=== PATIENT | female | born 1965 | race Caucasian/White ===

== ENCOUNTER 2019-10-18 14:20 | Inpatient (IN) | payer SELFPAY ==
[2019-10-18 14:23] VITALS: BP 189/127; PULSE 125; RESP 18; TEMP 36.6; O2SAT 98; BMI 26.4
--- NOTE | 2019-10-18 14:29 | W.ED.PSYCH ---
HPI - Psych General: Chief Complaint: Psychiatric Symptoms Stated Complaint: si Time Seen by Provider: 10/18/19 14:29 History of Present Illness: HPI Narrative: Delia is a nice 54-year-old female who comes in complaining of suicidal ideation. She states that she had a plan to overdose on pills. She states she feels this way around anniversaries and it is her anniversary with her . Her killed himself in the past by shooting himself in the bed while she was with him. She states it is traumatized her and she is had this problem ever since. She is requesting admission for stabilization at the psych unit. Review of Systems General: Reports: other (negative unless marked) Const: Denies: fever, chills, body aches, fatigue, malaise or diaphoresis Eyes: Denies: change in vision or blurry vision ENMT: Denies: throat pain, painful swallowing, hoarseness, ear pain, ear discharge, Change in hearing or nasal discharge Card: Denies: chest pain, palpitations, irregular heart rhythm, syncope, pre-syncope, shortness of breath on exertion or shortness of breath when lying down Resp: Denies: shortness of breath, productive cough, non-productive cough, wheezing, coughing up blood or chest congestion GI: Denies: abdominal pain, nausea, vomiting, vomiting blood, coffee grounds in vomit, diarrhea, constipation, cramping, blood in stool or black tarry stool : Denies: flank pain, painful urination, urinary frequency, urinary urgency, decreased urine ouput, urinary incontinence or blood in urine Musc: Denies: neck pain, back pain, extremity pain, extremity swelling, joint pain, joint swelling, joint warmth or joint stiffness Skin/Breast: Denies: rash, skin tenderness or yellow skin Neuro: Denies: headache, numbness in extremities, weakness in extremities, changes in sensation, lack of coordination, difficulty walking, dizziness, vertigo or confusion Endo: Denies: excessive thirst, tired all the time, cold intolerance, excessive sweating, flushing or hot flashes Jatinder/Lymph: Denies: easy bruising, easy bleeding, petechiae or enlarged lymph nodes All/Imm: Denies: hives, throat swelling, tongue swelling, facial swelling or acute wheezing PFSH ED PFSH: Medical History (Updated 10/18/19 @ 16:42 by Laurel Brewer) Generalized anxiety disorder Hypertension Major depressive disorder, recurrent severe without psychotic features Nicotine dependence, unspecified, uncomplicated Post-traumatic stress disorder, chronic Surgical History History of oral surgery Hx of tonsillectomy Family History (Updated 10/18/19 @ 16:40 by Geovani Garcia MD) Other CAD (coronary artery disease) Social History (Updated 10/18/19 @ 16:40 by Geovani Garcia MD) Smoking and tobacco status: current every day smoker cigarettes Packs smoked per day: 1.5 Years cigarettes smoked: 15 Quit status (tobacco): has tried quititng Number of times tried to quit tobacco: 4 Second hand smoke exposure: No Smoking risk assessment/counseling performed?: No Alcohol intake: current Alcohol intake frequency: 3 or more drinks per day Alcohol type: hard liquor Alcohol use comment: Vodka, greater than 1 pint a day Substance/Drug Use: never Physical Exam Const: COMMON NORMALS: no apparent distress, oriented x3, no limitations, healthy appearing and well nourished EXAM LIMITATIONS: no altered mental status GENERAL APPEARANCE: cooperative, well kempt and well developed ORIENTATION/CONSCIOUSNESS: Yes awake HENMT: COMMON NORMALS: normocephalic, head/scalp atraumatic, hearing grossly normal bilaterally, external ears normal, EAC's normal, external nose normal and moist oral mucous membranes HEAD & SCALP: normal to inspection, normocephalic and atraumatic FACE & SINUS: normal facial exam and face symmetric NOSE: external nose normal and nares normal EXTERNAL EAR: Yes external ears normal EXTERNAL AUDITORY CANAL: EAC's normal MOUTH: oral and palatal mucosa normal and tongue normal Eye: COMMON NORMALS: PERRL, EOMs intact bilaterally, conjunctivae normal and no scleral icterus GENERAL EYE: normal appearance of both eyes and normal light reflex CONJUNCTIVA: Yes conjunctivae normal SCLERA: sclerae normal CORNEA: Yes corneas normal PUPIL: Yes PERRL DIRECT OPHTHALMOSCOPY: Yes normal light reflex Neck/C-Spine: COMMON NORMALS: full ROM, no lymphadenopathy, supple, no meningeal signs and no JVD GENERAL: Yes normal visual inspection and Yes trachea midline CERVICAL SPINE: Yes cervical ROM normal Chest: COMMONS NORMALS: inspection of chest normal and palpation of chest normal Resp: COMMON NORMALS: normal respiratory effort, no retractions, no use of accessory muscles and clear to auscultation bilaterally EFFORT & INSPECTION: Yes able to speak in complete sentences AUSCULTATION: clear to auscultation bilaterally Cardio: COMMON NORMALS: no JVD, regular rate, regular rhythm, S1 normal heart sound, S2 normal heart sound, no gallops, no clicks, no murmurs and no rub JUGULAR VENOUS DISTENTION: no JVD RATE: regular rate RHYTHM: regular rhythm HEART SOUNDS: S1 normal and S2 normal GI: COMMON NORMALS: soft to palpation, non-tender, no hepatosplenomegaly and no masses INSPECTION: Yes normal to inspection PALPATION: Yes soft and Yes no hepatosplenomegaly : COMMON NORMALS: Yes no CVA tenderness BLADDER/KIDNEY EXAM: Yes no CVA tenderness Back/Pelvis: COMMON NORMALS: no CVA tenderness, thoracic and lumbar spine normal to inspection, no thoracic nor lumbar tenderness and thoraco-lumbar ROM normal Extremity: COMMON NORMALS: normal to inspection, full ROM, normal capillary refill, no joint enlargement, no clubbing, cyanosis or edema and no calf tenderness Neuro: COMMON NORMALS: oriented x3, CN's II-XII intact bilaterally, moves all extremities, no focal motor deficits and no sensory deficits noted MENINGEAL SIGNS: Yes no meningeal signs Psych: COMMON NORMALS: mental status grossly normal, cooperative and speech normal APPEARANCE: Yes well kempt ACTIVITY/MOTOR BEHAVIOR: Yes avoids eye contact SPEECH: Yes normal speech MOOD & AFFECT: Yes anxious and Yes irritable Skin: COMMON NORMALS: no rashes or lesions noted, skin turgor normal, no jaundice, no petechiae and no mottling GENERAL SKIN EXAM: no rashes or lesions noted and turgor normal MDM - Psych MDM Narrative: Medical decision making narrative: The case was reviewed with Dr. Diop, he agrees to the mid to the MPU. He would like Dr. Garcia consulted for the hyponatremia. Dr. Fernández has been notified and is going to see the patient in the ER. Lab Data: Labs: Lab Results 10/18/19 10/18/19 10/18/19 Range/Units 15:01 15:01 15:01 WBC (4.0-10.0) 10^3/ uL RBC (4.1-5.3) 10^6/u L Hgb (11.5-15.3) g/dL Hct (37.0-47.0) % MCV (81-99) fL MCH (28.0-34.0) pg MCHC (30.0-36.0) g/dL RDW (12.1-15.1) % Plt Count (130-400) 10^3/c mm MPV (7.4-10.4) fL Neut % (Auto) % Lymph % (Auto) % Kimble % (Auto) % Eos % (Auto) % Baso % (Auto) % Neut # (Auto) (1.8-7.7) 10^3/u L Lymph # (Auto) (0.8-4.8) 10^3/u L Kimble # (Auto) (0.2-0.9) 10^3/u L Eos # (Auto) (0.0-0.8) 10^3/u L Baso # (Auto) (0.0-0.1) 10^3/u L Nucleated RBC % (a uto) % Nucleated RBCs # /100WBC PT (10.5-13.3) SECO NDS INR (0.8-1.2) Sodium (136-145) mmol/L Potassium (3.5-5.1) mmol/L Chloride (98-107) mmol/L Carbon Dioxide (22-29) mmol/L Anion Gap (5-19) BUN (6-20) mg/dL Creatinine (0.5-0.9) mg/dL GFR Calculation (90-130) mL/min Glucose (65-115) mg/dL Calculated Osmolal ity (285-295) mOsm/k g Calcium (8.5-10.5) mg/dL Total Bilirubin (0.15-1.2) mg/dL AST (0-32) U/L ALT (0-33) U/L Alkaline Phosphata se (35-105) IU/L Total Protein (6.6-8.7) g/dL Albumin (3.5-5.2) g/dL Globulin (1.3-4.6) g/dL TSH (0.27-4.20) uIU/ mL HCG, Qual Negative (Negative) Urine Color Yellow (Yellow) Urine Appearance Clear (CLEAR) Urine pH 5 (5-7) Ur Specific Gravit y 1.015 (1.005-1.030) Urine Protein 1+ H (Negative) Urine Glucose (UA) 1+ (Normal) Urine Ketones 2+ H (Negative) Urine Blood 2+ H (Negative) Urine Nitrate Negative (Negative) Urine Bilirubin Neg (NEGATIVE) Urine Urobilinogen Norm (Negative) mg/dL Ur Leukocyte Maria Elena ase Negative (Negative) Urine RBC 0-4 H (0-2) /hpf Urine WBC 5-10 H (0-5) /hpf Ur Squamous Epith Cells Rare (0-5) Urine Bacteria 1+ H (NONE) Coarse Granular Ca sts 5-10 H /lpf Urine Mucus Trace Salicylates (3-10) mg/dL Urine Opiates Scre en Negative (Negative) ng/mL Acetaminophen (10-30) ug/mL Ur Barbiturates Sc reen Negative (Negative) ng/mL Phenytoin (10-20) ug/mL Valproic Acid (50-100) mcg/mL Carbamazepine (4.0-12.0) ug/mL Ur Phencyclidine S crn Negative (Negative) ng/mL Ur Amphetamines Sc reen Negative (Negative) ng/mL U Benzodiazepines Scrn Negative (Negative) ng/mL Hartwell (0.6-1.2) mmol/L Urine Cocaine Scre en Negative (Negative) ng/mL U Marijuana (THC) Screen Negative (Negative) ng/mL Ethyl Alcohol (0-10) mg/dL 10/18/19 10/18/19 10/18/19 Range/Units 15:21 15:21 15:21 WBC 7.8 (4.0-10.0) 10^3/ uL RBC 4.69 (4.1-5.3) 10^6/u L Hgb 13.4 (11.5-15.3) g/dL Hct 38.9 (37.0-47.0) % MCV 82.9 (81-99) fL MCH 28.6 (28.0-34.0) pg MCHC 34.4 (30.0-36.0) g/dL RDW 14.0 (12.1-15.1) % Plt Count 352 (130-400) 10^3/c mm MPV 8.5 (7.4-10.4) fL Neut % (Auto) 81.5 % Lymph % (Auto) 12.4 % Kimble % (Auto) 5.4 % Eos % (Auto) 0.0 % Baso % (Auto) 0.4 % Neut # (Auto) 6.4 (1.8-7.7) 10^3/u L Lymph # (Auto) 1.0 (0.8-4.8) 10^3/u L Kimble # (Auto) 0.4 (0.2-0.9) 10^3/u L Eos # (Auto) 0.0 (0.0-0.8) 10^3/u L Baso # (Auto) 0.0 (0.0-0.1) 10^3/u L Nucleated RBC % (a uto) 0 % Nucleated RBCs # 0.0 /100WBC PT 13.00 (10.5-13.3) SECO NDS INR 0.95 (0.8-1.2) Sodium 125 L (136-145) mmol/L Potassium 4.1 (3.5-5.1) mmol/L Chloride 83 L (98-107) mmol/L Carbon Dioxide 25 (22-29) mmol/L Anion Gap 21.1 H (5-19) BUN 6 (6-20) mg/dL Creatinine 0.4 L (0.5-0.9) mg/dL GFR Calculation 166.3 H (90-130) mL/min Glucose 124 H (65-115) mg/dL Calculated Osmolal ity 257 L (285-295) mOsm/k g Calcium 9.5 (8.5-10.5) mg/dL Total Bilirubin 0.6 (0.15-1.2) mg/dL AST 32 (0-32) U/L ALT 20 (0-33) U/L Alkaline Phosphata se 118 H (35-105) IU/L Total Protein 7.0 (6.6-8.7) g/dL Albumin 4.4 (3.5-5.2) g/dL Globulin 2.6 (1.3-4.6) g/dL TSH 1.56 (0.27-4.20) uIU/ mL HCG, Qual (Negative) Urine Color (Yellow) Urine Appearance (CLEAR) Urine pH (5-7) Ur Specific Gravit y (1.005-1.030) Urine Protein (Negative) Urine Glucose (UA) (Normal) Urine Ketones (Negative) Urine Blood (Negative) Urine Nitrate (Negative) Urine Bilirubin (NEGATIVE) Urine Urobilinogen (Negative) mg/dL Ur Leukocyte Maria Elena ase (Negative) Urine RBC (0-2) /hpf Urine WBC (0-5) /hpf Ur Squamous Epith Cells (0-5) Urine Bacteria (NONE) Coarse Granular Ca sts /lpf Urine Mucus Salicylates < 0.3 L (3-10) mg/dL Urine Opiates Scre en (Negative) ng/mL Acetaminophen < 5.0 L (10-30) ug/mL Ur Barbiturates Sc reen (Negative) ng/mL Phenytoin 0.8 L (10-20) ug/mL Valproic Acid 2.8 L (50-100) mcg/mL Carbamazepine 2.0 L (4.0-12.0) ug/mL Ur Phencyclidine S crn (Negative) ng/mL Ur Amphetamines Sc reen (Negative) ng/mL U Benzodiazepines Scrn (Negative) ng/mL Hartwell (0.6-1.2) mmol/L Urine Cocaine Scre en (Negative) ng/mL U Marijuana (THC) Screen (Negative) ng/mL Ethyl Alcohol < 10 (0-10) mg/dL 10/18/19 Range/Units 15:21 WBC (4.0-10.0) 10^3/ uL RBC (4.1-5.3) 10^6/u L Hgb (11.5-15.3) g/dL Hct (37.0-47.0) % MCV (81-99) fL MCH (28.0-34.0) pg MCHC (30.0-36.0) g/dL RDW (12.1-15.1) % Plt Count (130-400) 10^3/c mm MPV (7.4-10.4) fL Neut % (Auto) % Lymph % (Auto) % Kimble % (Auto) % Eos % (Auto) % Baso % (Auto) % Neut # (Auto) (1.8-7.7) 10^3/u L Lymph # (Auto) (0.8-4.8) 10^3/u L Kimble # (Auto) (0.2-0.9) 10^3/u L Eos # (Auto) (0.0-0.8) 10^3/u L Baso # (Auto) (0.0-0.1) 10^3/u L Nucleated RBC % (a uto) % Nucleated RBCs # /100WBC PT (10.5-13.3) SECO NDS INR (0.8-1.2) Sodium (136-145) mmol/L Potassium (3.5-5.1) mmol/L Chloride (98-107) mmol/L Carbon Dioxide (22-29) mmol/L Anion Gap (5-19) BUN (6-20) mg/dL Creatinine (0.5-0.9) mg/dL GFR Calculation (90-130) mL/min Glucose (65-115) mg/dL Calculated Osmolal ity (285-295) mOsm/k g Calcium (8.5-10.5) mg/dL Total Bilirubin (0.15-1.2) mg/dL AST (0-32) U/L ALT (0-33) U/L Alkaline Phosphata se (35-105) IU/L Total Protein (6.6-8.7) g/dL Albumin (3.5-5.2) g/dL Globulin (1.3-4.6) g/dL TSH (0.27-4.20) uIU/ mL HCG, Qual (Negative) Urine Color (Yellow) Urine Appearance (CLEAR) Urine pH (5-7) Ur Specific Gravit y (1.005-1.030) Urine Protein (Negative) Urine Glucose (UA) (Normal) Urine Ketones (Negative) Urine Blood (Negative) Urine Nitrate (Negative) Urine Bilirubin (NEGATIVE) Urine Urobilinogen (Negative) mg/dL Ur Leukocyte Maria Elena ase (Negative) Urine RBC (0-2) /hpf Urine WBC (0-5) /hpf Ur Squamous Epith Cells (0-5) Urine Bacteria (NONE) Coarse Granular Ca sts /lpf Urine Mucus Salicylates (3-10) mg/dL Urine Opiates Scre en (Negative) ng/mL Acetaminophen (10-30) ug/mL Ur Barbiturates Sc reen (Negative) ng/mL Phenytoin (10-20) ug/mL Valproic Acid (50-100) mcg/mL Carbamazepine (4.0-12.0) ug/mL Ur Phencyclidine S crn (Negative) ng/mL Ur Amphetamines Sc reen (Negative) ng/mL U Benzodiazepines Scrn (Negative) ng/mL Hartwell 0.1 L (0.6-1.2) mmol/L Urine Cocaine Scre en (Negative) ng/mL U Marijuana (THC) Screen (Negative) ng/mL Ethyl Alcohol (0-10) mg/dL Imaging Data^: CXR: My impression: No acute cardiopulmonary findings. EKG Data^: EKG 1: Attestation: I personally reviewed and interpreted this EKG as follows: EKG interpretation date: 10/18/19 EKG interpretation time: 15:06 Interpretation: Sinus tachycardia at 170 beats a minute, nonspecific ST-T wave changes, poor R wave progression, normal intervals, no blocks. 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
--- NOTE | 2019-10-18 14:30 | ECG_ITS ---
Measurements Intervals [place] Rate: 117 P: 45 CT: 201 QRS: 74 QRSD: 80 T: 76 QT: 319 QTc: 446 SINUS TACHYCARDIA POSSIBLE LEFT ATRIAL ENLARGEMENT [-0.1mV P WAVE IN V1/V2] ABNORMAL RHYTHM ECG Compared to ECG 01/28/2019 12:50:48 Myocardial infarct finding no longer present Electronically Signed On 10-18-2019 18:26:06 CDT by Pavel Summers M.D. [email or web address]
[2019-10-18 14:36] VITALS: RESP 18
[2019-10-18 15:08] LABS: HCG Qualitative Urine. Negative (Negative)
[2019-10-18 15:16] LABS: Specific Gravity, Urine 1.015 (1.005-1.030); Urine Appearance Clear (CLEAR); Urine Color Yellow (Yellow); pH Urine 5 (5-7)
[2019-10-18 15:17] LABS: Add Urine Microscopic? YES; Bilirubin Urine Neg (NEGATIVE); Blood Urine 2+ (Negative); Glucose Urine UA 1+ (Normal); Ketones Urine 2+ (Negative); Leukocyte Esterase Urine Negative (Negative); Nitrate Urine Negative (Negative); Protein Urine 1+ (Negative); Urobilinogen Urine Norm (Negative)
[2019-10-18 15:24] LABS: Amphetamines Screen Urine Negative (Negative); Barbiturates Screen Urine Negative (Negative); Benzodiazepines Screen Urine Negative (Negative); Cocaine Screen Urine Negative (Negative); Opiate Screen Urine Negative (Negative); PCP Screen Urine Negative (Negative); THC Screen Urine Negative (Negative)
[2019-10-18 15:25] LABS: Add Urine Culture? No; Bacteria Urine 1+; Mucus Urine TRACE; RBC Urine 0-4 /hpf (0-2); Squamous Epithelial Cell Urine RARE (0-5)
[2019-10-18 15:29] LABS: Basophils % 0.4 %; Hematocrit 38.9 % (37.0-47.0); Hemoglobin 13.4 g/dL (11.5-15.3); Lymphocytes % 12.4 %; Mean Corpuscular HGB Conc 34.4 g/dL (30.0-36.0); Mean Corpuscular Hemoglobin 28.6 pg (28.0-34.0); Mean Corpuscular Volume 82.9 fL (81-99); Mean Platelet Volume 8.5 fL (7.4-10.4); Monocytes # 0.4 10^3/uL (0.2-0.9); Monocytes % 5.4 %; Neutrophils # 6.4 10^3/uL (1.8-7.7); Neutrophils % 81.5 %; Nucleated Red Blood Cells % 0 %; Platelet Count 352 10^3/cmm (130-400); Red Blood Count 4.69 10^6/uL (4.1-5.3); White Blood Count 7.8 10^3/uL (4.0-10.0)
[2019-10-18 15:42] LABS: INR 0.95 (0.8-1.2)
[2019-10-18 15:49] LABS: Lithium 0.1 mmol/L (0.6-1.2)
[2019-10-18 15:59] LABS: Alanine Aminotransferase 20 U/L (0-33); Albumin Level 4.4 g/dL (3.5-5.2); Alkaline Phosphatase 118 IU/L (35-105); Anion Gap 21.1 (5-19); Aspartate Amino Transferase 32 U/L (0-32); Blood Urea Nitrogen 6 mg/dL (6-20); Calcium 9.5 mg/dL (8.5-10.5); Carbon Dioxide 25 mmol/L (22-29); Chloride 83 mmol/L (98-107); Globulin 2.6 g/dL (1.3-4.6); Glomerular Filtration Rate 166.3 mL/min (90-130); Glucose 124 mg/dL (65-115); Osmolality Calculated 257 mOsm/kg (285-295); Phenytoin Dilantin 0.8 ug/mL (10-20); Potassium 4.1 mmol/L (3.5-5.1); Sodium 125 mmol/L (136-145); Thyroid Stimulating Hormone 1.56 uIU/mL (0.27-4.20); Total Bilirubin 0.6 mg/dL (0.15-1.2); Valproic Acid Level 2.8 mcg/mL (50-100)
[2019-10-18 16:00] LABS: Acetaminophen < 5.0 ug/mL (10-30); Alcohol Level < 10 mg/dL (0-10); Salicylate < 0.3 mg/dL (3-10)
--- NOTE | 2019-10-18 16:06 | XR_ITS ---
WS: [id number] PORTABLE CHEST HISTORY: cough COMPARISON: 01/28/2019 Portions of the chest are obscured by the patient's clothing device. Lungs are clear and well expanded. No pleural effusion or pneumothorax. Cardiac size: Normal. Mediastinum/Aorta: Normal mediastinum. No osseous abnormality seen. XR/XR chest 1V portable [id number] IMPRESSION: Unremarkable portable chest.
--- NOTE | 2019-10-18 16:13 | PC.NURSE ---
Dr. Brewer gave verbal order to not start and IV and no fluids.
--- NOTE | 2019-10-18 16:20 | PM.CONSULT ---
Providers/Reason For Consult Consulting Physican/Specialty*: Hospitalist, Shady Garcia MD Reason for Consult*: Hyponatremia Primary Care Provider: Tigre Licona History of Present Illness History of Present Illness Delia Gomez is a 54 year old female who I was contacted from the emergency department for consult from psychiatry on a patient going to their service. Patient reports she is in the emergency department with suicidal ideation. She denies any overdose, or suicide attempt. She reports she has been feeling bad for several years since the of her . She reports she feels a little bit of dizziness when she gets up quickly. She denies any nausea, vomiting. She reports she drinks quite a bit over 1 pint of vodka daily. She gets some withdrawal symptoms when she does not drink, shakiness but he can usually tough this out at home. She denies any recent fevers. She has had no cough. She reports no headache. Last alcohol intake was vodka last night. She has been eating rather poorly lately. Some loose stool on occasion. Review of Systems General: Reports: 10 or more systems reviewed and unremarkable except in HPI and below Const: Denies: fever or chills Eyes: Denies: change in vision ENMT: Denies: throat pain Card: Denies: chest pain Resp: Denies: shortness of breath or productive cough GI: Denies: abdominal pain, vomiting blood, coffee grounds in vomit, blood in stool or black tarry stool : Denies: flank pain Musc: Denies: neck pain Skin/Breast: Denies: rash Neuro: Denies: headache Psych: Denies: anxiety or depression Endo: Denies: excessive urination Jatinder/Lymph: Denies: easy bruising All/Imm: Denies: hives Meds/Allergies Home Medications and Allergies Home Medications Medication Instructions Recorded Confirmed Type atenolol 25 mg tablet 25 mg PO DAILY 07/18/19 10/18/19 History loratadine 10 mg tablet 10 mg PO DAILY 07/18/19 10/18/19 History varenicline 0.5 mg (11)-1 mg (42) See Rx Instructions PO PER PKG DIR 09/11/19 10/18/19 Rx tablets in a dose pack #53 each amlodipine 10 mg tablet 10 mg PO DAILY 10/04/19 10/18/19 History lisinopril 10 mg tablet 10 mg PO DAILY 10/04/19 10/18/19 History hydroxyzine HCl 50 mg tablet 50 mg PO TID PRN #90 tab 10/07/19 10/18/19 Rx sertraline 50 mg tablet 50 mg PO DAILY #30 tab 10/07/19 10/18/19 Rx trazodone 100 mg tablet 200 mg PO .HS #60 tab 10/07/19 10/18/19 Rx Cymbalta See Rx Instructions .ROUTE .COMPLEX 10/18/19 10/18/19 History Allergies Allergy/AdvReac Type Severity Reaction Status Date / Time prochlorperazine AdvReac Severe Convulsions Verified 10/18/19 14:29 [From Compazine] Current Medications Current Medications Generic Name Dose Route Start Last Admin Trade Name Freq PRN Reason Stop Dose Admin Sodium Chloride 1,000 mls @ 999 mls/hr 10/18/19 16:15 10/18/19 16:13 Sodium Chloride 0.9% IV 10/18/19 18:15 Not Given .Q1H1M PRIYA PFSH Acute PFSH: Medical History (Updated 10/18/19 @ 16:49 by Geovani Garcia MD) Generalized anxiety disorder Hypertension Major depressive disorder, recurrent severe without psychotic features Nicotine dependence, unspecified, uncomplicated Post-traumatic stress disorder, chronic Surgical History History of oral surgery Hx of tonsillectomy Family History (Updated 10/18/19 @ 16:40 by Geovani Garcia MD) Other CAD (coronary artery disease) Social History (Updated 10/18/19 @ 16:40 by Geovani Garcia MD) Smoking and tobacco status: current every day smoker cigarettes Packs smoked per day: 1.5 Years cigarettes smoked: 15 Quit status (tobacco): has tried quititng Number of times tried to quit tobacco: 4 Second hand smoke exposure: No Smoking risk assessment/counseling performed?: No Alcohol intake: current Alcohol intake frequency: 3 or more drinks per day Alcohol type: hard liquor Alcohol use comment: Vodka, greater than 1 pint a day Substance/Drug Use: never Vitals/I&O/Wt Last Vital Signs Temp 97.9 F 10/18/19 14:23 Pulse 125 H 10/18/19 14:23 Resp 18 10/18/19 14:36 BP 189/127 10/18/19 14:23 Pulse Ox 98 10/18/19 14:23 Weight last 48 hrs Weight 63.503 kg Physical Exam Narrative: EXAM NARRATIVE: General exam demonstrates a sad white female in no apparent distress HEENT: Pupils equally round. Oropharynx clear. Slight tremulousness of tongue noted. Neck is supple no lymphadenopathy or thyromegaly Cardiovascular regular rate and rhythm without murmur. No S3 or S4 Lungs clear no wheezing or crackles Abdomen is soft and positive bowel sounds. No obvious organomegaly was deferred Extremities no cyanosis clubbing or edema, cap refill brisk Skin without rash Neuro no obvious focal deficits Data Other Data: Other data: Alcohol level less than 10. Urinalysis with a few white blood cells but patient is asymptomatic. TSH is normal hCG is negative. LFTs within normal limits with the exception of alkaline phosphatase at 118 Chest x-ray is negative A&P Assessment and plan (1) Hyponatremia: Appears to have hypotonic hyponatremia, slightly volume depleted. Chronicity is unknown. 1 L saline is being given in the emergency department. Check urine sodium, urine chloride, urine osmolality Check random cortisol Overall patient appears to be asymptomatic. She did complain of some dizziness but this is upon arising quickly. This is likely secondary to some mild volume depletion. Etiology of hyponatremia likely alcoholism. Note that her anion gap was elevated at 20. If sodium worsens would transfer to medical floor. Chest x-ray checked and negative. At this point there is no reason for neuroimaging secondary to lack of symptoms. Repeat BMP at 1900. This will be following her liter of saline. Status: Acute (2) Suicidal ideation: She has been accepted under psychiatric care. Status: Acute (3) Alcoholism: Defer to psychiatry Status: Acute (4) Nicotine dependence, unspecified, uncomplicated: Discussed abstinence Status: Acute Additional A&P Information Hypertension. Continue many of her medications. I was able to confirm she was on no diuretics or hydrochlorothiazide that could have contributed to her hyponatremia Hyperlipidemia Depression/anxiety/PTSD Consult Attestations Medical Necessity Statement: Per psychiatry Time Spent in Patient Care: Greater than 35 minutes Coding Level of Care Code Acute [employer] for [facility] Diagnoses Hyponatremia E87.1 Suicidal ideation R45.851 Alcoholism F10.20 Nicotine dependence, unspecified, uncomplicated F17.200
[2019-10-18] MEDS: sodium chloride 0.9% 1,000 ML 999 ML IV (16:49)
[2019-10-18] MEDS: LORazepam 2 mg Tablet PO (16:56)
[2019-10-18 17:13] VITALS: RESP 17
[2019-10-18 18:00] LABS: Triglycerides 91 mg/dL (0-150)
[2019-10-18 18:08] LABS: Urine Random Sodium 30 mmol/L
[2019-10-18 18:11] VITALS: BP 159/90; PULSE 117; RESP 20; TEMP 36.8; O2SAT 96
[2019-10-18 19:04] LABS: Blood Urea Nitrogen 5 mg/dL (6-20); Calcium 9.9 mg/dL (8.5-10.5); Carbon Dioxide 28 mmol/L (22-29); Chloride 89 mmol/L (98-107); Glomerular Filtration Rate 166.3 mL/min (90-130); Glucose 103 mg/dL (65-115); Osmolality Calculated 272 mOsm/kg (285-295); Sodium 133 mmol/L (136-145)
[2019-10-18 19:38] LABS: Cortisol Random 15.85 mcg/dL (2.47-19.5)
[2019-10-18 22:00] VITALS: BP 159/94; PULSE 119; RESP 18; TEMP 36.5; O2SAT 96
[2019-10-18] MEDS: trazodone 50 mg Tablet PO (23:17)
[2019-10-19 06:00] VITALS: BP 176/80; PULSE 109; RESP 17; TEMP 36.8; O2SAT 97
[2019-10-19 06:57] LABS: Anion Gap 18.6 (5-19); Blood Urea Nitrogen 4 mg/dL (6-20); Carbon Dioxide 29 mmol/L (22-29); Chloride 91 mmol/L (98-107); Glomerular Filtration Rate 166.3 mL/min (90-130); Glucose 112 mg/dL (65-115); Osmolality Calculated 276 mOsm/kg (285-295); Potassium 3.6 mmol/L (3.5-5.1); Sodium 135 mmol/L (136-145)
--- NOTE | 2019-10-19 08:26 | P.PN_ITS ---
Subjective Subjective: Interval history: Delia reports she is doing okay this morning with the exception of feeling anxious. No nausea, dizziness, etc. Medications: Reviewed: Yes Vitals/I&O/Wt Last Vital Signs Temp 98.3 F 10/19/19 06:00 Pulse 109 H 10/19/19 06:00 Resp 17 10/19/19 06:00 BP 176/80 10/19/19 06:00 Pulse Ox 97 10/19/19 06:00 10/18/19 10/19/19 10/19/19 22:59 06:59 14:59 Intake Total 1000 / 1000 Balance 1000 / 1000 Weight last 48 hrs Weight 63.503 kg Physical Exam Narrative: EXAM NARRATIVE: General exam is no apparent distress Cardiovascular regular rate and rhythm without murmur Lungs clear Abdomen is soft with positive bowel sounds Extremities no cyanosis clubbing or edema Data : 10/18/19 15:21 10/19/19 06:20 A&P Assessment and plan (1) Hyponatremia: Appears to have hypotonic hyponatremia, slightly volume depleted. Chronicity is unknown. 1 L saline is being given in the emergency department. Sodium has continued to climb on its own throughout the night to 135 this morning. Patient is asymptomatic. I think this is likely secondary to her alcoholism. Cortisol was normal. At this point I will sign off. Please call with any questions or concerns. Chest x-ray checked and negative. Status: Acute (2) Suicidal ideation: She has been accepted under psychiatric care. Status: Acute (3) Alcoholism: Defer to psychiatry Status: Acute (4) Nicotine dependence, unspecified, uncomplicated: Discussed abstinence Status: Acute Additional A&P Information Hypertension. Continue her home medications. I was able to confirm she was on no diuretics or hydrochlorothiazide that could have contributed to her hyponatremia Hyperlipidemia Depression/anxiety/PTSD Attestations Medical Necessity Statement*: As per psychiatry. 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
[2019-10-19] MEDS: atenolol 50 mg Tablet 25 MG PO (08:27)
[2019-10-19] MEDS: lisinopril 10 mg Tablet PO (08:27)
[2019-10-19] MEDS: amlodipine 10 mg Tablet PO (08:27)
[2019-10-19 12:45] VITALS: BP 150/88; PULSE 80; RESP 18; TEMP 36.2; O2SAT 97
--- NOTE | 2019-10-19 12:59 | PM.NHP ---
Providers/Chief Complaint Admitting Physician: Nehemias Diop MD Primary Care Provider: Tigre Licona Chief Complaint: SI HPI NPU History of Present Illness Chief complaint: I think I need some meds straightened out. History of present illness: Delia Gomez is a 54-year-old woman with no prior psychiatric history until she discovered her had suicided in the bed next to her approximately 1 year ago. She has gone through a number of other life changes since that time. Now with the occurrence of the anniversary date which was a few weeks ago, symptoms have worsened. She reports that she is sad and blue on a daily basis. She feels hopeless and overwhelmed. She does nothing for enjoyment or relaxation. There is nothing that she looks forward to when she wakes up in the morning. Her sleep is highly variable and is characterized by supervisor assembly stock awakening. She has poor energy. Appetite varies. She has passive suicidal ideation especially in the morning. She wakes up in the morning and dreads the day and thinks about ending her life. However she chooses to get up and do something to distract herself so that she stops thinking that way. She denies auditory or visual hallucinations or intrusive thoughts. This has been going on continually since the suicide of her . However it has worsened over the past 2 weeks. Another complaint that she has is that she is constantly struggling with high anxiety . However on further questioning, she describes it more as a being on an adrenaline han. She cannot relax. She cannot sit still. She has always struggled with this episodically and but in the past year it has been, constant thing. She also reports symptoms of posttraumatic stress disorder since the suicide of her . She reports avoidance, hypervigilance, nightmares, and reexperiencing. She is currently seeing a psychiatrist at the [facility]. She has been on trials of Zoloft, Cymbalta, and Effexor. None of them were tolerable. She said they exacerbated her irritability and adrenaline han . A complication is that until a week ago, she was also taking Chantix. She was being provided hydroxyzine for anxiety. It caused significant problems with constipation and dry mouth. Notably, the patient seems to be quite sensitive to side effects to medications in general. This predates her entry into mental health treatment. ER physician note: Delia is a nice 54-year-old female who comes in complaining of suicidal ideation. She states that she had a plan to overdose on pills. She states she feels this way around anniversaries and it is her anniversary with her . Her killed himself in the past by shooting himself in the bed while she was with him. She states it is traumatized her and she is had this problem ever since. She is requesting admission for stabilization at the psych unit. Mental health history: It is noticed in her chart that it lists a history of alcoholism. The patient does not report that. Her urine drug screen is as above. Therapy note from 10/17/2019 Symptoms Reported: Client engage in therapy over the phone and reported that she had a corina crazy week . Client reported that it was coming up in the anniversary of a in her family, a family member by suicide, and he brother is not speaking to her. Client reported that she did engage in alcohol use but it was a bad day and I just needed to relax . Client reported that she has been managing her symptoms appropriately considering the recent events. Client denied any thoughts of harm to herself or others. Psychiatry outpatient note from: 10/07/2019 Subjective: She stopped the Cymbalta after 2 weeks saying it made her feel funny in some way. She is taking Chantix but was prescribed the [facility] clinic because she could not afford it at [facility]. She is now been taking Chantix for 1 month now and her smoking is currently about 1-1/4 packs/day. She takes trazodone 50 mg at night and says she is sleeping 6 or 7 hours about 5 nights a week with the other 2 nights she struggles with only 3 to 4 hours. This is an improvement in her sleep so advised her to continue the trazodone may be increase it to 75 mg. We discussed risk benefits of medications and she is been on Zoloft in the past and tolerated it well so we are going to restart Zoloft at 50 mg and titrate up every 4 weeks. She denies suicidal thoughts denies current drug or alcohol use besides a nicotine. 09/11/2019 Subjective: She still struggling with a lot of feelings of guilt over the suicide of her 1 year ago. She said the Effexor was making her emotionally numb so she stopped it. We will start Cymbalta in its place after discussing risk benefits. She is taking half tabs of trazodone maybe 50 or 75 mg at night getting 6 to 7 hours of sleep. Hydroxyzine she only takes rarely because makes her too sleepy. She asked today about Chantix for smoking cessation we discussed risk benefits and I prescribed starter pack however she will be paying out of pocket so she may not be able to afford it. Also can see how much of Cymbalta cause for her as well. He denies any suicidal thoughts denies psychosis or chet. Biggest issue right now is feelings of guilt and confusion over the suicide of her and her conflicted feelings about it ranging from guilt to anger to depression. Social history: Patient grew up in a family and traveled quite a bit during her childhood. She is a high school graduate and has taken some college courses. She was and living in [facility] when her suicided on 28 September 2018. 2 months later her family packed her up and moved her to [place] to be near family. However she does not perceive them to be very supportive or understanding of her situation. They believe that she should be able to set that episode behind her and not think about it anymore. As a result, she does not feel that she has much of a support system. [place] the [place] and is socially isolated. She engages in no goal-directed self-esteem building activities. Legal history: She reports no history of arrests for felony convictions. Past medical history: Allergies: She has Compazine listed as an allergy but this was initiated when she had a seizure at age 9. This was coincident with a high temperature and infectious illness of unknown type. She struggles with hypertension. Currently she is taking amlodipine 10 mg daily and atenolol 25 mg twice daily. Her blood pressures continue to be problematic. She also smokes over a pack of cigarettes per day. Meds NPU Home Medications Medication Instructions Recorded Confirmed Type atenolol 25 mg tablet 25 mg PO DAILY 07/18/19 10/18/19 History loratadine 10 mg tablet 10 mg PO DAILY 07/18/19 10/18/19 History amlodipine 10 mg tablet 10 mg PO DAILY 10/04/19 10/18/19 History lisinopril 10 mg tablet 10 mg PO DAILY 10/04/19 10/18/19 History Cymbalta See Rx Instructions .ROUTE .COMPLEX 10/18/19 10/18/19 History Allergies Allergy/AdvReac Type Severity Reaction Status Date / Time prochlorperazine AdvReac Severe Convulsions Verified 10/18/19 14:29 [From Compazine] [facility] NPU PFS: Medical History (Updated 10/18/19 @ 16:49 by Geovani Garcia MD) Generalized anxiety disorder Hypertension Major depressive disorder, recurrent severe without psychotic features Nicotine dependence, unspecified, uncomplicated Post-traumatic stress disorder, chronic Surgical History History of oral surgery Hx of tonsillectomy Family History (Updated 10/18/19 @ 16:40 by Geovani Garcia MD) Other CAD (coronary artery disease) Social History (Updated 10/18/19 @ 16:40 by Geovani Garcia MD) Smoking and tobacco status: current every day smoker cigarettes Packs smoked per day: 1.5 Years cigarettes smoked: 15 Quit status (tobacco): has tried quititng Number of times tried to quit tobacco: 4 Second hand smoke exposure: No Smoking risk assessment/counseling performed?: No Alcohol intake: current Alcohol intake frequency: 3 or more drinks per day Alcohol type: hard liquor Alcohol use comment: Vodka, greater than 1 pint a day Substance/Drug Use: never Mental Status Exam MSE Comments: Mental Status Exam: The patient is alert interpersonally engaged female appearing approximately her stated age. Eye contact is good. She is somewhat fidgety. She is believed to be a reliable informant to the best of her ability. Information provided is internally consistent and consistent with that in the chart. Appearance: hygiene is good; no gross neurological deficits., gait is unremarkable; AIMS=0 Speech: Speech is of normal rate and rhythm and easily understood. Thought processes: Thought processes are abstract. Judgment is adequate for safety. Associations: intact Psychotic processes: There is no indication of guarding or paranoia. There is no attention to the internal stimuli. Auditory and visual hallucinations are denied. Judgment: Insight is fair. Problem solving skills are excellent. Orientation: The patient is oriented to person, place time and situation. Memory: no deficits noted in immediate, intermediate, or remote spheres. Attention: The patient is alert and interpersonally engaged. Language: Verbalizations are coherent. Fund of knowledge: Fund of knowledge is above average. Affect/Mood: Affect is consistent with a depressed mood. Denied current suicidal ideation Affective range good Psychosis: perception unimpaired except through cognitive distortion; reality testing intact. Vitals/I&O/Wt Last Vital Signs Temp 97.2 F L 10/19/19 12:45 Pulse 80 10/19/19 12:45 Resp 18 10/19/19 12:45 BP 150/88 10/19/19 12:45 Pulse Ox 97 10/19/19 12:45 10/18/19 10/19/19 10/19/19 22:59 06:59 14:59 Intake Total 1000 / 1000 Balance 1000 / 1000 Weight last 48 hrs Weight 63.503 kg Data NPU : 10/18/19 15:21 10/19/19 06:20 A&P Additional A&P Information Diagnoses: Major depression?single episode, severe Posttraumatic stress disorder?acute Assessment:Delia Gomez is struggling with the diagnoses of depression and PTSD. She has received trials of medication of Effexor, Cymbalta, and Zoloft. These were not tolerated though it is noted that they were initiated at significant doses. The patient historically has been sensitive to side effects of medications. She also reports that in the past, she was prescribed diazepam as an adjunct to her hypertensive treatment. She said that it did provide some benefit and that she did not abuse it. Treatment plan: Due to the psychiatric conditions and treatment listed in the Assessment and Plan - the patient requires continued hospitalization. Will provide a safe and therapeutic environment for patient.. Will continue inpatient treatment to allow for medication adjustment and monitoring. Will continue q15 min safety checks. A Variety of potential interventions were discussed along with potential benefits and side effects. It was decided to initiate mirtazapine 15 mg at bedtime targeting symptoms of depression. We will also initiate prazosin 1 mg at bedtime targeting symptoms of PTSD. She will be given a trial dose of lorazepam and ?as needed? dosing if effective while in the hospital. She was warned that this may not be a medication that she is permitted to take when she goes home. However she appears to be a reliable informant and she reports that she specifically did not abuse the diazepam that was given to her in the past. Monitor patient's mood, sleep, appetite, and behavior closely. Encourage patient to participate in individual and group therapeutic sessions on the ramesh. Estimated length of stay 5 days Involuntary Hold Information 96 Hour Hold: 96 Hour Involuntary Admission: No Attestations NPU Medical Necessity Statement*: Patient will remain in the hospital another 3-5 nights while medication efficacy and tolerability are established. Coding Level of Care Code Acute Websphere Process Server Developer for Neris Moya
[2019-10-19] MEDS: LORazepam 0.5 mg Tablet PO (13:10)
[2019-10-19] MEDS: cetylpyridinium Lozenge 1 EACH MUCOUS MEM (15:28)
--- NOTE | 2019-10-19 15:28 | PC.NURSE ---
PRN CEPACOL 1 LOZENGE GIVEN PO PER PT C/O COUGH
[2019-10-19] MEDS: acetaminophen 325 mg Tablet 650 MG PO (20:27)
[2019-10-19] MEDS: mirtazapine 15 mg Tablet PO (20:27)
[2019-10-19] MEDS: prazosin 1 mg Capsule PO (20:27)
[2019-10-19 22:00] VITALS: BP 154/89; PULSE 84; RESP 18; TEMP 36.6; O2SAT 99
[2019-10-19] MEDS: trazodone 50 mg Tablet PO (22:12)
--- NOTE | 2019-10-19 22:12 | PC.NURSE ---
Addendum entered by Sybil Freed LPN 10/19/19 23:15: PRN TRAZODONE FOLLOW-UP PT RESTING IN BED W/EYES CLOSED. RESPIRATIONS EVEN AND UNLABORED. WILL CONTINUE TO MONITOR. Original Note: TRAZODONE PT REQUESTING SLEEP AID. TRAZODONE 50 MG GIVEN PO. WILL MONITOR FOR MEDICATION EFFECTIVENESS.
[2019-10-20] MEDS: acetaminophen 325 mg Tablet 650 MG PO (03:06)
[2019-10-20 06:00] VITALS: BP 150/90; PULSE 92; RESP 19; TEMP 36.6; O2SAT 97
[2019-10-20] MEDS: lisinopril 10 mg Tablet PO (08:05)
[2019-10-20] MEDS: amlodipine 10 mg Tablet PO (08:05)
[2019-10-20] MEDS: atenolol 50 mg Tablet 25 MG PO (08:05)
[2019-10-20] MEDS: blistex lip oint 7 gm Tube 1 APPLIC TOPICAL (08:08)
[2019-10-20] MEDS: hyDROXYzine 25 mg Capsule 50 MG PO ×2 (11:12→23:43)
[2019-10-20] MEDS: OLANZapine ODT 5 MG TABLET PO (13:08)
[2019-10-20 14:00] VITALS: BP 123/82
--- NOTE | 2019-10-20 14:54 | PM.NPN ---
Subjective NPU Subjective: Interval history: The patient presented yesterday and was seen by Dr. Diop and had some issues with her depression and post traumatic stress disorder. She was started on Remeron 15 mg, of which she has had one dose, and also Prazosin. She feels like these medications are likely helping, but she also reports she has only had one dose. Otherwise, she reports she is doing fine and is trying to just navigate what she is going to do once she is discharged. Struggling with the anniversary of her 's suicide Mental Status Exam MSE Comments: This is an overweight, white female, with adequate dress, grooming, and eye contact. No abnormal movements. Cooperative with exam in no acute distress. Speech was decreased rate and volume. Mood described as depressed; affect congruent. Thought process, organized. Thought content: patient denied any suicidal or homicidal ideation, there were no delusions reported or noted, patient denied any auditory or visual hallucinations. Attention, concentration, and memory appeared intact but were not formally tested. She is alert and oriented times three. Insight and judgment are fair. Vitals/I&O/Wt Last Vital Signs Temp 97.8 F 10/20/19 06:00 Pulse 92 10/20/19 06:00 Resp 19 H 10/20/19 06:00 BP 123/82 10/20/19 14:00 Pulse Ox 97 10/20/19 06:00 Weight last 48 hrs Weight 61.462 kg Data NPU : 10/18/19 15:21 10/19/19 06:20 A&P Additional A&P Information This is a 54 year old, white female, with a history of depression and post traumatic stress disorder, who presented off of medication and had her medications restarted yesterday. Continue current medication. Continue individual and milieu therapy Continue q-15 minute checks for safety. Will work with social work, in the morning, to look at possible discharge options, at this time. Involuntary Hold Information 96 Hour Hold: 96 Hour Involuntary Admission: No Attestations NPU Medical Necessity Statement*: Inpatient hospitalization is medically necessary and the clinically appropriate intervention at this time. We will monitor medications and titrate as indicated. Likely length of stay is two to four days. Coding Level of Care Code Acute Steam Tunnel Feeder for Neris Moya
[2019-10-20] MEDS: nicotine 21 mg Patch 1 PATCH TRANSDERMA (16:01)
[2019-10-20] MEDS: mirtazapine 15 mg Tablet PO (21:07)
[2019-10-20] MEDS: trazodone 50 mg Tablet PO (21:07)
[2019-10-20] MEDS: prazosin 1 mg Capsule PO (21:07)
[2019-10-20 21:30] VITALS: BP 121/81; PULSE 80; RESP 20; TEMP 37.2; O2SAT 97
--- NOTE | 2019-10-20 21:32 | PC.NURSE ---
PT given HS minipress, and remeron at 2106.
[2019-10-21 06:00] VITALS: BP 112/78; PULSE 89; RESP 20; TEMP 37.2; O2SAT 98
[2019-10-21] MEDS: amlodipine 10 mg Tablet PO (08:19)
[2019-10-21] MEDS: blistex lip oint 7 gm Tube 1 APPLIC TOPICAL (08:19)
[2019-10-21] MEDS: atenolol 50 mg Tablet 25 MG PO (08:19)
[2019-10-21] MEDS: lisinopril 10 mg Tablet PO (08:19)
--- NOTE | 2019-10-21 09:42 | PM.NPN ---
Subjective NPU Subjective: Interval history: The patient presents today reporting that she is doing okay. She does feel like the medication is helping her sleep, which is making a big difference, and she feels like she might be doing a little better. She reports she has been talking to her sister and looking at what her options are as we look towards discharge. She reports that she is wanting to make sure that she does legitimate follow up, after this visit, so she does not get to the place that she has been recently. She is facing the facts of the impact of her husbands suicide on her mental health. Mental Status Exam MSE Comments: This is an overweight, white female, with adequate dress, grooming, and eye contact. No abnormal movements. Cooperative with exam in no acute distress. Speech was slightly decreased rate and volume. Mood described as a little better; affect congruent. Thought process, organized. Thought content: patient denied any suicidal or homicidal ideation, there were no delusions reported or noted, she denied any auditory or visual hallucinations. Attention, concentration, and memory appeared intact but were not formally tested. She is alert and oriented times three. Insight and judgment appear fair. Vitals/I&O/Wt Last Vital Signs Temp 97.8 F 10/21/19 21:53 Pulse 87 10/21/19 21:53 Resp 19 H 10/21/19 21:53 BP 159/83 10/21/19 21:53 Pulse Ox 100 10/21/19 21:53 Weight last 48 hrs Weight 61.462 kg Data NPU : 10/18/19 15:21 10/19/19 06:20 A&P Additional A&P Information This is a 54 year old, white female, with a history of depression and post traumatic stress disorder, who presented off of medication and had her medications restarted. Continue current medication. Continue individual and milieu therapy Continue q-15 minute checks for safety. Will work with social work, in the morning, to look at possible discharge options, at this time. Involuntary Hold Information 96 Hour Hold: 96 Hour Involuntary Admission: No Attestations NPU Medical Necessity Statement*: Inpatient hospitalization is medically necessary and the clinically appropriate intervention at this time. We will monitor medications and titrate as indicated. Likely length of stay is 1-2 days. Coding Level of Care Code Acute Reading Coach for Neris Moya
[2019-10-21 12:50] LABS: Osmolality Urine 408 mOsm/kg (50-1200)
[2019-10-21 14:00] VITALS: BP 106/74; PULSE 85; RESP 20; TEMP 36.8; O2SAT 97
[2019-10-21] MEDS: nicotine 21 mg Patch 1 PATCH TRANSDERMA (14:31)
[2019-10-21] MEDS: acetaminophen 325 mg Tablet 650 MG PO (16:22)
[2019-10-21] MEDS: mirtazapine 15 mg Tablet PO (20:13)
[2019-10-21] MEDS: OLANZapine ODT 5 MG TABLET PO (20:13)
[2019-10-21] MEDS: prazosin 1 mg Capsule PO (20:13)
--- NOTE | 2019-10-21 21:32 | PC.NURSE ---
Pt given scheduled minipress, remeron and prn zyprexa at 2012.
[2019-10-21 21:53] VITALS: BP 159/83; PULSE 87; RESP 19; TEMP 36.6; O2SAT 100
[2019-10-22 06:00] VITALS: BP 147/93; PULSE 93; RESP 18; TEMP 36.8; O2SAT 97
[2019-10-22] MEDS: amlodipine 10 mg Tablet PO (08:11)
[2019-10-22] MEDS: lisinopril 10 mg Tablet PO (08:11)
[2019-10-22] MEDS: atenolol 50 mg Tablet 25 MG PO (08:11)
[2019-10-22] MEDS: hyDROXYzine 25 mg Capsule 50 MG PO ×2 (08:13→13:19)
--- NOTE | 2019-10-22 08:13 | PC.NURSE ---
PRN VISTARIL 50 MG GIVEN PO PER PT C/O ANXIETY WILL CONT TO MONITOR
--- NOTE | 2019-10-22 11:53 | P.PN_ITS ---
Subjective NPU Subjective: Interval history: Delia presents today reporting that she is really understanding and exploring how her ?s has impacted her approach to things. She identifies that the medication has been helpful and that she is starting to come out of this funk that she had been in, leading up to this anniversary. She has been talking to her supports and she is starting to feel more prepared to face life and the challenges that come with it. She reports that the medication is helpful and that she is eating and sleeping better. Mental Status Exam MSE Comments: This is a well-nourished, well-developed, white female, with adequate dress, grooming, and eye contact. No abnormal movements. Cooperative with exam in no acute distress. Speech was normal rate and volume. Mood described as much better; affect congruent. Thought process, organized. Thought content: patient denied any suicidal or homicidal ideation, there were no delusions reported or noted, she denied any auditory or visual hallucinations. Attention, concentration, and memory appeared intact but were not formally tested. She is alert and oriented times three. Insight and judgment are fair and improving. Vitals/I&O/Wt Last Vital Signs Temp 98.3 F 10/22/19 06:00 Pulse 93 10/22/19 06:00 Resp 18 10/22/19 06:00 BP 147/93 10/22/19 06:00 Pulse Ox 97 10/22/19 06:00 Data NPU : 10/18/19 15:21 10/19/19 06:20 A&P Additional A&P Information This is a 54 year old, white female, with a history of depression and post traumatic stress disorder, who presented off of medication and had her medications restarted. Continue current medication. Continue individual and milieu therapy Continue q-15 minute checks for safety. Plan for d/c tomorrow. Involuntary Hold Information 96 Hour Hold: 96 Hour Involuntary Admission: No Attestations NPU Medical Necessity Statement*: Inpatient hospitalization is medically necessary and the clinically appropriate intervention at this time. We will monitor medications and titrate as indicated. Likely length of stay is 1-2 days. Tentative plan for discharge tomorrow. Coding Level of Care Code Acute Civil Engineering Intern for Neris Moya
--- NOTE | 2019-10-22 13:19 | PC.NURSE ---
PRN VISTARIL 50 MG GIVEN PO PER PT C/O ANXIETY. WILL CONT TO MONITOR
[2019-10-22 14:00] VITALS: BP 105/74; PULSE 78; RESP 20; TEMP 36.5; O2SAT 98
[2019-10-22] MEDS: nicotine 21 mg Patch 1 PATCH TRANSDERMA (15:04)
[2019-10-22] MEDS: prazosin 1 mg Capsule PO (20:11)
[2019-10-22] MEDS: mirtazapine 15 mg Tablet PO (20:11)
[2019-10-22] MEDS: OLANZapine ODT 5 MG TABLET PO (20:11)
--- NOTE | 2019-10-22 20:11 | PC.NURSE ---
Pt given scheduled Remeron, Minipress and PRN Zyprexa.
[2019-10-22 22:00] VITALS: BP 134/84; PULSE 82; RESP 18; TEMP 36.6; O2SAT 100
[2019-10-23 06:00] VITALS: BP 147/90; PULSE 84; RESP 18; TEMP 36.4; O2SAT 97
[2019-10-23] MEDS: atenolol 50 mg Tablet 25 MG PO (08:18)
[2019-10-23] MEDS: lisinopril 10 mg Tablet PO (08:18)
[2019-10-23] MEDS: amlodipine 10 mg Tablet PO (08:18)
[2019-10-23] MEDS: hyDROXYzine 25 mg Capsule 50 MG PO (09:43)
--- NOTE | 2019-10-23 09:44 | PC.NURSE ---
PRN VISTARIL 50 MG GIVEN PO PER PT C/O ANXIETY. NO OUTWARD S/S OF ANXIETY NOTED, PT WATCHING TV IN DAY ROOM, MOOD PLEASANT. WILL CONT TO MONITOR.
--- NOTE | 2019-10-23 11:33 | PM.NDC ---
Diagnoses at Discharge Discharge Diagnosis (1) Hyponatremia: Status: Resolved (2) Suicidal ideation: Status: Resolved (3) Alcoholism: Status: Acute (4) Nicotine dependence, unspecified, uncomplicated: Status: Acute Reason for Visit Reason for Visit: Reason For Visit: SI Brief History: History of Present Illness Chief complaint: I think I need some meds straightened out. History of present illness: Delia Gomez is a 54-year-old woman with no prior psychiatric history until she discovered her had suicided in the bed next to her approximately 1 year ago. She has gone through a number of other life changes since that time. Now with the occurrence of the anniversary date which was a few weeks ago, symptoms have worsened. She reports that she is sad and blue on a daily basis. She feels hopeless and overwhelmed. She does nothing for enjoyment or relaxation. There is nothing that she looks forward to when she wakes up in the morning. Her sleep is highly variable and is characterized by internal corrosion specialist awakening. She has poor energy. Appetite varies. She has passive suicidal ideation especially in the morning. She wakes up in the morning and dreads the day and thinks about ending her life. However she chooses to get up and do something to distract herself so that she stops thinking that way. She denies auditory or visual hallucinations or intrusive thoughts. This has been going on continually since the suicide of her . However it has worsened over the past 2 weeks. Another complaint that she has is that she is constantly struggling with high anxiety . However on further questioning, she describes it more as a being on an adrenaline han. She cannot relax. She cannot sit still. She has always struggled with this episodically and but in the past year it has been, constant thing. She also reports symptoms of posttraumatic stress disorder since the suicide of her . She reports avoidance, hypervigilance, nightmares, and reexperiencing. She is currently seeing a psychiatrist at the [facility]. She has been on trials of Zoloft, Cymbalta, and Effexor. None of them were tolerable. She said they exacerbated her irritability and adrenaline han . A complication is that until a week ago, she was also taking Chantix. She was being provided hydroxyzine for anxiety. It caused significant problems with constipation and dry mouth. Notably, the patient seems to be quite sensitive to side effects to medications in general. This predates her entry into mental health treatment. ER physician note: Delia is a nice 54-year-old female who comes in complaining of suicidal ideation. She states that she had a plan to overdose on pills. She states she feels this way around anniversaries and it is her anniversary with her . Her killed himself in the past by shooting himself in the bed while she was with him. She states it is traumatized her and she is had this problem ever since. She is requesting admission for stabilization at the psych unit. Mental health history: It is noticed in her chart that it lists a history of alcoholism. The patient does not report that. Her urine drug screen is as above. Therapy note from 10/17/2019 Symptoms Reported: Client engage in therapy over the phone and reported that she had a corina crazy week . Client reported that it was coming up in the anniversary of a in her family, a family member by suicide, and he brother is not speaking to her. Client reported that she did engage in alcohol use but it was a bad day and I just needed to relax . Client reported that she has been managing her symptoms appropriately considering the recent events. Client denied any thoughts of harm to herself or others. Psychiatry outpatient note from: 10/07/2019 Subjective: She stopped the Cymbalta after 2 weeks saying it made her feel funny in some way. She is taking Chantix but was prescribed the [facility] because she could not afford it at [facility]. She is now been taking Chantix for 1 month now and her smoking is currently about 1-1/4 packs/day. She takes trazodone 50 mg at night and says she is sleeping 6 or 7 hours about 5 nights a week with the other 2 nights she struggles with only 3 to 4 hours. This is an improvement in her sleep so advised her to continue the trazodone may be increase it to 75 mg. We discussed risk benefits of medications and she is been on Zoloft in the past and tolerated it well so we are going to restart Zoloft at 50 mg and titrate up every 4 weeks. She denies suicidal thoughts denies current drug or alcohol use besides a nicotine. 09/11/2019 Subjective: She still struggling with a lot of feelings of guilt over the suicide of her 1 year ago. She said the Effexor was making her emotionally numb so she stopped it. We will start Cymbalta in its place after discussing risk benefits. She is taking half tabs of trazodone maybe 50 or 75 mg at night getting 6 to 7 hours of sleep. Hydroxyzine she only takes rarely because makes her too sleepy. She asked today about Chantix for smoking cessation we discussed risk benefits and I prescribed starter pack however she will be paying out of pocket so she may not be able to afford it. Also can see how much of Cymbalta cause for her as well. He denies any suicidal thoughts denies psychosis or chet. Biggest issue right now is feelings of guilt and confusion over the suicide of her and her conflicted feelings about it ranging from guilt to anger to depression. Social history: Patient grew up in a family and traveled quite a bit during her childhood. She is a high school graduate and has taken some college courses. She was and living in [facility] when her suicided on 28 September 2018. 2 months later her family packed her up and moved her to [place] to be near family. However she does not perceive them to be very supportive or understanding of her situation. They believe that she should be able to set that episode behind her and not think about it anymore. As a result, she does not feel that she has much of a support system. [place] the [place] and is socially isolated. She engages in no goal-directed self-esteem building activities. Legal history: She reports no history of arrests for felony convictions. Past medical history: Allergies: She has Compazine listed as an allergy but this was initiated when she had a seizure at age 9. This was coincident with a high temperature and infectious illness of unknown type. She struggles with hypertension. Currently she is taking amlodipine 10 mg daily and atenolol 25 mg twice daily. Her blood pressures continue to be problematic. She also smokes over a pack of cigarettes per day. Hospital Course Hospital Course Delia presented to the emergency room with suicidal thoughts and struggling with the anniversary of her 's suicide and bed that she was laying in. She was admitted to the neuropsychiatric unit and slowly acclimated to the services provided. She was started on Remeron and prazosin and had a very robust response to those medications showing marked improvement by the time she was discharged. During the hospitalization she had routine laboratory studies which were within normal limits except for a few outliers. Additionally there was a general medical evaluation which was also within normal limits and revealed no new acute processes. Discharge Summary At the time of discharge, she denied any lethality and was absent psychosis. Mood and anxiety were well managed and she endorsed a plan to avoid drugs of abuse, and follow-up with the recommended post hospital services. She was evaluated and deemed to be absent lethality and had received the maximum benefit from an inpatient hospitalization, so was discharged. Involuntary Hold Information 96 Hour Hold: 96 Hour Involuntary Admission: No Mental Status Exam MSE Comments: This is a well-nourished, well-developed, white female, with adequate dress, grooming, and eye contact. No abnormal movements. Cooperative with exam in no acute distress. Speech was normal rate and volume. Mood described as pretty good; affect congruent. Thought process, organized. Thought content: patient denied any suicidal or homicidal ideation, there were no delusions reported or noted, she denied any auditory or visual hallucinations. Attention, concentration, and memory appeared intact but were not formally tested. She is alert and oriented times three. Insight and judgment are fair and improving. Discharge Data Data Completed and Pending: Completed Studies During Hospitalization Category Date Time Status XR chest 1V siomara ble [id number] Stat Exams 10/18/19 16:06 Completed Vitals: Last Vital Signs Temp 97.6 F 10/23/19 06:00 Pulse 84 10/23/19 06:00 Resp 18 10/23/19 06:00 BP 147/90 10/23/19 06:00 Pulse Ox 97 10/23/19 06:00 Discharge Plan Discharge Patient Disposition: Home, Self-Care Condition: Stable Prescriptions: New prazosin 1 mg Capsule 1 mg PO BEDTIME 30 Days Qty: 30 RF: 1 mirtazapine 15 mg Tablet 15 mg PO BEDTIME 30 Days Qty: 30 RF: 1 Continued Chantix Starting Month Box 0.5 mg (11)- 1 mg (42) tablets,dose pack See Rx Instructions PO PER PKG DIR Qty: 53 RF: 0 trazodone 100 mg tablet 200 mg PO .HS Qty: 60 RF: 2 hydroxyzine HCl 50 mg tablet 50 mg PO TID PRN (Reason: itching) Qty: 90 RF: 2 atenolol 25 mg tablet 25 mg PO DAILY 30 Days Qty: 30 RF: 1 amlodipine 10 mg tablet 10 mg PO DAILY 30 Days Qty: 30 RF: 1 lisinopril 10 mg tablet 10 mg PO DAILY 30 Days Qty: 30 RF: 1 Claritin 10 mg tablet 10 mg PO DAILY 30 Days Qty: 0 RF: 0 Discontinued sertraline [Zoloft] 50 mg tablet 50 mg PO DAILY Qty: 30 RF: 2 Cymbalta See Rx Instructions .ROUTE .COMPLEX RF: 0 Discharge Orders: Discharge Order (Routine); Ordered 10/23/19 Ordered By: Jose Guadalupe White Referrals: Tigre Licona [Primary Care Provider] - Bradley Veronica MD [Physician] - 11/04/19 11:45 am Elba Foreman MS, [facility] [Referring] - 10/24/19 11:00 am (be sure to confirm the appointment the day before!) Discharge Diet: Regular Discharge Activity: Resume usual activity Patient Instructions: Alcoholism, Prazosin (By mouth), Mirtazapine (By mouth) Activity Restrictions/Additional Instructions: For questions about Medicaid you may contact Gerardo Hendrickson at [facility] [phone]. [phone] Discharge Date/Time: 10/23/19 13:41 Discharge Attestations NPU Time Spent in Discharge Care*: less than 30 min Specific Discharge Activities: Specific discharge activities: educating patient, discussing with case manager specialist/social workers/dc planners, documenting/other paperwork and evaluating patient/reviewing data Coding Level of Care Code Acute Specimen Technician for Chg Fwd Diagnoses Hyponatremia E87.1 Suicidal ideation R45.851 Alcoholism F10.20 Nicotine dependence, unspecified, uncomplicated F17.200
[2019-10-23 12:03] VITALS: BP 147/90; PULSE 84; RESP 18; TEMP 36.4; O2SAT 97
== END 2019-10-23 13:41 | disposition home or self-care (01) | DRG 885 ==
LOC: ER 15:00 → NP 16:21
PROVIDERS: Internal Medicine; Admitting Provider Psychiatry & Neurology Psychiatry; Emergency Provider Emergency Medicine; Family Provider Family Medicine; PCP Family Medicine; Visit Provider Psychiatry & Neurology Psychiatry
DX: F33.2 Major depressive disorder, recurrent severe without psychotic features (principal); E87.1 Hypo-osmolality and hyponatremia; R45.851 Suicidal ideations; F10.20 Alcohol dependence, uncomplicated; F41.9 Anxiety disorder, unspecified; I10 Essential (primary) hypertension; F17.210 Nicotine dependence, cigarettes, uncomplicated; F43.10 Post-traumatic stress disorder, unspecified
CPT/HCPCS: 12345; 36415; 71045; 80048; 80053; 80156; 80164; 80178; 80185; 80306; 80307; 81001; 81025; 82533; 83935; 84300; 84443; 84478; 85025; 85610; 93005; 96360; 96361; 99284; J7030

== ENCOUNTER 2019-12-12 17:20 | Outpatient (CLI) | payer SELFPAY ==
[2019-12-12 18:42] LABS: Alanine Aminotransferase 12 U/L (0-33); Albumin Level 4.2 g/dL (3.5-5.2); Alkaline Phosphatase 98 IU/L (35-105); Anion Gap 17.4 (5-19); Aspartate Amino Transferase 13 U/L (0-32); Blood Urea Nitrogen 12 mg/dL (6-20); Calcium 9.4 mg/dL (8.5-10.5); Carbon Dioxide 23 mmol/L (22-29); Chloride 98 mmol/L (98-107); Chol HDL Ratio 4.38 mg/dL (0.0-4.40); Cholesterol 184 mg/dL (0-200); Globulin 2.5 g/dL (1.3-4.6); Glomerular Filtration Rate 87.2 mL/min (90-130); Glucose 87 mg/dL (65-115); HDL Cholesterol 42 mg/dL (60-100); LDL Cholesterol Calculated 101 mg/dL (50-129); Osmolality Calculated 273 mOsm/kg (285-295); Potassium 4.4 mmol/L (3.5-5.1); Sodium 134 mmol/L (136-145); Total Bilirubin 0.2 mg/dL (0.15-1.2); Total Protein 6.7 g/dL (6.6-8.7); Triglycerides 206 mg/dL (0-150)
== END 2019-12-12 17:21 | disposition home or self-care (01) ==
LOC: LAB 17:20
PROVIDERS: Visit Provider General Practice
DX: I10 Essential (primary) hypertension (principal)
CPT/HCPCS: 80053; 80061